=== PATIENT | male | born 1940 | race Two or more races ===

== ENCOUNTER → 2016-10-13 | Outpatient (CLI) | payer MEDICARE, BC ==
[2016-10-13 09:25] LABS: EKG EKG PERFORMED
[2016-10-13 10:45] LABS: Appearance,Urine Clear (Clear); Basophils % (A) 0 %; Bilirubin,Urine Negative (Negative); CH 30.5; CHCM 33.4; Eosinophils # (A) 0.1 k/uL (0-0.7); Eosinophils % (A) 1 %; Glucose,Urine (UA) Negative (Negative); HCT 41.8 % (39.0-53.0); HDW 2.66; HGB 14.1 gm/dL (13.0-17.5); Ketones,Urine Negative (Negative); Leukocyte Esterase,Urine Trace (Negative); Luc # (Auto) 0.19; Luc % (Auto) 3; Lymphocytes # (A) 2.2 k/uL (1.0-4.8); Lymphocytes % (A) 33 %; MCHC 33.8 g/dL (31.0-37.0); MCV 91.6 fL (80.0-100.0); Mean Platelet Volume 6.2; Monocytes # (A) 0.4 k/uL (0-1.0); Monocytes % (A) 6 %; Mucus,Urine Rare /hpf; Neutrophils # (A) 3.7 k/uL (1.3-7.7); Neutrophils % (A) 56 %; Nitrite,Urine Negative (Negative); PH, Urine 6.5 (5.0-8.0); Particle Count 2442; Protein,Urine Trace (Negative); RBC 4.57 m/uL (4.30-5.90); RBC,Urine 57 /hpf (0-5); RDW 13.1 % (11.5-15.5); Specific Gravity,Urine 1.013 (1.001-1.035); UA Billing (MACRO vs. MICRO) MICRO; Urobilinogen,Urine <2.0 mg/dL (<2.0); WBC 6.5 k/uL (3.8-10.6); WBC (Perox) 6.77; WBC,Urine 3 /hpf (0-5)
[2016-10-13 10:47] LABS: INR 1.1 (<1.1); Partial Thromboplastin Time 23.7 sec (22.0-30.0); Prothrombin Time 10.6 sec (9.0-12.0)
[2016-10-13 11:04] LABS: ALT 26 U/L (21-72); AST 22 U/L (17-59); Alkaline Phosphatase 78 U/L (38-126); Anion Gap 9 mmol/L; Blood Urea Nitrogen 14 mg/dL (9-20); Calcium 9.6 mg/dL (8.4-10.2); Carbon Dioxide 26 mmol/L (22-30); Chloride 104 mmol/L (98-107); Glucose 100 mg/dL (74-99); Non-African American GFR(MDRD) >60 (>60 ml/min/1.73 sqM); Potassium 4.7 mmol/L (3.5-5.1); Sodium 139 mmol/L (137-145); Total Bilirubin 0.6 mg/dL (0.2-1.3); Total Protein 6.9 g/dL (6.3-8.2)
== END | disposition home or self-care (01) ==
LOC: LABWHC1 09:13
PROVIDERS: ATTEND Orthopaedic Surgery Sports Medicine
DX: Z01.810 Encounter for preprocedural cardiovascular examination (principal); Z01.812 Encounter for preprocedural laboratory examination
CPT/HCPCS: 36415; 80053; 81001; 85025; 85610; 85730; 93005

== ENCOUNTER → 2016-10-26 | Outpatient (CLI) | payer MEDICARE, BC | END | disposition home or self-care (01) | LOC: LABPAT 12:02 | PROVIDERS: ATTEND Orthopaedic Surgery Sports Medicine | DX: Z01.812 Encounter for preprocedural laboratory examination (principal) | CPT/HCPCS: 87070 ==

== ENCOUNTER 2016-11-03 08:59 | Inpatient (IN) | payer MEDICARE, BC ==
[2016-10-25 08:54] VITALS: BMI 28.7
[~2016-11-03 08:59] MED LIST: ACETAMINOPHEN TAB 500 MG TAB PO ONE; HYDROmorphone 1 MG/ML 1 ML SYRINGE IVP PRN; LACTATED RINGERS 1,000 ML IV SCH; LIDOCAINE 1% 20 ML VIAL (10MG/ML) FOR IV START INTRADERMA PRN; MELOXICAM 7.5 MG TAB PO ONE; MIDAZOLAM 2 MG/2 ML VIAL IV PRN; ONDANSETRON 4 MG/2 ML VIAL IVP ONE; TRANEXAMIC ACID 1,000 MG in SODIUM CHLORIDE 0.9% 100 ML IVPB ONE; ceFAZolin 2 GM in SODIUM CHLORIDE 0.9% 100 ML IVPB ONE
[2016-11-03] MEDS ORDERED: HYDROmorphone 1 MG/ML 1 ML SYRINGE IVP PRN ×3 (14:05)
[2016-11-03] MEDS ORDERED: TEMAZEPAM 15 MG CAP PO PRN (14:05)
[2016-11-03] MEDS ORDERED: NALOXONE 0.4 MG/ML 1 ML VIAL IV PRN ×2 (14:05→18:14)
[2016-11-03] MEDS ORDERED: NA PHOS,M-B/NA PHOS,DI-BA 133 ML ENEMA RECTAL PRN (14:05)
[2016-11-03] MEDS ORDERED: HYDROcodone/APAP 7.5-325MG 1 EACH TAB PO PRN ×2 (14:05)
[2016-11-03] MEDS ORDERED: DIAZEPAM 5 MG TAB PO PRN (14:05)
[2016-11-03] MEDS ORDERED: ACETAMINOPHEN TAB 325 MG TAB PO PRN (14:05)
[2016-11-03] MEDS ORDERED: MAGNESIUM HYDROXIDE 2,400 MG/10 ML CUP PO PRN (14:05)
[2016-11-03] MEDS ORDERED: traMADol 50 MG TAB PO PRN (14:05)
[2016-11-03] MEDS ORDERED: hydrOXYzine PAMOATE 25 MG CAP PO PRN (14:05)
[2016-11-03] MEDS ORDERED: BISACODYL 10 MG SUPP RECTAL PRN (14:05)
[2016-11-03] MEDS ORDERED: ONDANSETRON 4 MG/2 ML VIAL IVP PRN (14:05)
[2016-11-03] MEDS: LACTATED RINGERS 1,000 ML IV SCH (14:10)
[2016-11-03] MEDS ORDERED: VANCOMYCIN 1,000 MG in SODIUM CHLORIDE 0.9% 250 ML IVPB STA (15:44)
[2016-11-03] MEDS ORDERED: SODIUM CHLORIDE 0.9% 100 ML BAG ONE (15:47)
[2016-11-03] MEDS ORDERED: TRANEXAMIC ACID 1,000 MG/10 ML VIAL ONE (15:47)
[2016-11-03] MEDS ORDERED: PROPOFOL 10 MG/ML 20 ML VIAL IV ONE (15:47)
[2016-11-03] MEDS ORDERED: MORPHINE SULFATE (PF) 0.3 MG/0.3 ML SYR ONE (15:47)
[2016-11-03] MEDS ORDERED: fentaNYL (PF) 50 MCG/ML 2 ML AMP ONE (15:47)
[2016-11-03] MEDS ORDERED: MIDAZOLAM 2 MG/2 ML VIAL ONE (15:47)
[2016-11-03] MEDS ORDERED: GLYCOPYRROLATE 0.2 MG/ML 2 ML VIAL ONE (15:47)
[2016-11-03] MEDS: ROPIVACAINE 246.25 MG, EPINEPHrine 0.5 MG, KETOROLAC 30 MG, cloNIDine HCL/PF 80 MCG, WA... MISCELLANE ONE ×10 (16:15→17:14)
[2016-11-03] MEDS ORDERED: LACTATED RINGERS 1,000 ML IV ONE ×2 (16:38→18:46)
[2016-11-03] MEDS ORDERED: CLINDAMYCIN 1,800 MG in SODIUM CHLORIDE 0.9% IRRIGATIO 3,000 ML IRRIGATION ONE (16:39)
[2016-11-03] MEDS ORDERED: MORPHINE SULFATE 4 MG/ML SYRINGE IVP PRN (18:14)
[2016-11-03] MEDS ORDERED: NALBUPHINE 10 MG/ML AMPUL IV PRN (18:14)
[2016-11-03] MEDS ORDERED: diphenhydrAMINE 50 MG/ML 1 ML VIAL IVP PRN (18:14)
--- NOTE | 2016-11-03 18:29 | XR ---
EXAMINATION TYPE: XR knee limited LT DATE OF EXAM: 11/03/2016 6:16 PM CLINICAL HISTORY: Postoperative evaluation Two views of the left knee are submitted. Identified are changes of total knee arthroplasty with fem oral and tibial components appearing well seated. Postsurgical soft tissue changes are noted. Align ment is anatomic.
[2016-11-03] MEDS ORDERED: MORPHINE SULFATE 2 MG/ML SYRINGE IVP PRN (20:03)
[2016-11-03] MEDS ORDERED: SENNOSIDES-DOCUSATE SODIUM 1 EACH TAB PO SCH (21:00)
[2016-11-03] MEDS: ASPIRIN 325 MG TAB PO SCH (21:36)
[2016-11-03] MEDS: TAMSULOSIN 0.4 MG CAP.ER.24H PO SCH (22:25)
[2016-11-04] MEDS: ceFAZolin 2 GM in SODIUM CHLORIDE 0.9% 100 ML IVPB SCH ×2 (00:15→00:28)
[2016-11-04] MEDS: LACTATED RINGERS 1,000 ML IV SCH ×3 (01:20→15:11)
[2016-11-04 01:46] VITALS: RESP 16
[2016-11-04] MEDS ORDERED: PANTOPRAZOLE 40 MG TABLET PO SCH (07:30)
[2016-11-04] MEDS: ASPIRIN 325 MG TAB PO SCH (07:48)
--- NOTE | 2016-11-04 08:19 | OP ---
DATE OF SERVICE: 11/03/2016 SURGEON: ANDI WATKINS MD GRAIN ELEVATOR WORKER: KELLY ZACARIAS PA-C. PREOPERATIVE DIAGNOSIS: Left knee osteoarthrosis. POSTOPERATIVE DIAGNOSIS: Left knee osteoarthrosis. OPERATION: Left total knee arthroplasty. ANESTHESIA: Spinal with sedation. ESTIMATED BLOOD LOSS: 100 mL. Tourniquet time was 58 minutes at 250 mmHg. SPECIMENS REMOVED: COMPLICATIONS: None apparent. DRAINS: None. DISPOSITION: Postanesthesia care unit. INDICATIONS: Mr. Sharma is a very pleasant 75-year-old male with a long-standing history of left knee pain. History and physical examination are consistent with advanced left knee osteoarthrosis. He has been through significant nonoperative management up to this point. Further treatment options were discussed and he has decided to go forward with a left total knee arthroplasty. The risks of the procedure were discussed with him in detail. These risks include, but are not limited to risk infection, nerve damage, bleeding, pain, and a risk of deep vein thrombosis, which could lead to fatal pulmonary embolism. There is also a risk of loosening of the implant, which could require revision operation. The patient understands these risks are all of his questions were answered to his satisfaction. Appropriate informed consent was obtained. DESCRIPTION OF THE PROCEDURE: The patient was identified in the preoperative holding area. The surgical site was marked by both the patient and myself. He was given 1 gram of vancomycin IV for prophylactic purposes. He was then transferred to the operative suite where he was placed supine on the operating room table. A spinal anesthetic was administered dosed per the anesthesia department without apparent complication. Examination under anesthesia was then performed. Patient was 2 to 3 degrees shy of full extension. He had 95 degrees of flexion. The medial collateral ligament, lateral collateral ligament and posterior cruciate ligaments were stable. Tourniquet was then placed high on the left upper thigh, well-padded in preparation for surgery. The patient's left lower extremity was then prepped and draped usual sterile fashion. Standard surgical pause was then undertaken to ensure that we were operating on the correct site and that appropriate preoperative antibiotics had been given. All staff in the room in agreement and we proceeded. The outlines of the patella were then marked with a surgical pen. A planned 12 cm vertical incision centered over the patella was marked with a surgical pen. The leg was then exsanguinated with an Esmarch dressing. The knee was then flexed and the tourniquet was inflated to 250 mmHg. Total tourniquet time for the procedure was 58 minutes. Incision was then made with a 10 blade scalpel. Dissection was carried down sharply to the overlying fascia. Great care was taken to minimize the skin flaps. The knee was then exposed using standard medial parapatellar approach. A small cuff of quadriceps tendon was left for suturing. He was in a bit of varus preoperatively. A standard medial release was then made. Superficial medial collateral ligament was dissected off the bone around to posterior aspect of the proximal tibia. The medial meniscus was then excised as well. The lateral meniscus was also released anteriorly. The leg was then externally rotated. The patella was everted. The knee was then flexed. Retractors were then placed to protect the collateral ligaments. I then proceeded to remove the infrapatellar fat pad. This was excised sharply tangentially with the fibers of the patellar tendon. I then proceeded to remove the peripheral osteophytes. This was done with a rongeur. I then proceeded with the distal femoral resection. He did have a small flexion contracture. I decided to go forward with a 9 mm resection. The femoral canal was then entered in midline of the femur approximately 10 mm anterior to the origin of the posterior cruciate ligament. The zuleyka was then advanced down the center of the femur and placed intramedullary. Based on preoperative radiographs, the angle between the anatomic and mechanical axis of the femur was approximately 4 to 5 degrees. The valgus angle of distal femoral cutting guide was then set at 4 degrees for the left knee. The distal femoral cutting guide was then advanced over the intramedullary zuleyka. This was seated firmly against the femur. I then, as mentioned, planned to take 9 mm off the distal femur. Cutting block was then secured onto the femur with pins. Jig was then removed. The distal femoral cut was made through the slot of the block. The pins were then removed. The distal femoral cutting block was removed. The accuracy of the distal femoral cuts was checked with 2 flat bars. I then proceeded with femoral sizing. The posterior referencing sizing guide was held firmly against the resected distal surface of the femur. Posterior condyles were resting on the posterior plane of the guide. The sizing stylus was then placed onto the anterior femur. The size was measured as a size 8. I then assessed for femoral rotation. Plan was for 3 degrees of external rotation. 3 degrees of external rotation was placed onto the jig. These holes were then marked. I then confirmed the rotation by 3 separate methods. This was done using epicondylar axis as well as Whitesides line and posterior referencing. It was then deemed that the external rotation was proper. I then went forward placing the femoral cutting block. This was placed over the previously placed pinholes. The brenton wing was then placed onto the anterior slots to ensure that we would not notch the anterior femur with the anterior femoral cut. I then proceeded with the anterior femoral cut. This was flush with the anterior cortex of femur. Posterior cuts were then made followed by the anterior chamfer cut and then the posterior chamfer cut. The cutting block was then removed. Throughout the resection, the collateral ligaments were protected with retractors. I then placed a trial size 8 femur. It fit very nice medial to lateral and fit flush with the distal end of the femur. The drill holes were then made. I then proceeded with the tibial cut. I planned for cruciate-retaining knee. The guide was then placed and set for varus valgus and for slope. The height was set for an approximately 2 mm resection from the medial tibial plateau, which was the lower side. I was happy with the alignment and the amount of resection. The cutting block was then pinned to the proximal tibia. The alignment zuleyka was removed and the proximal tibia was resected with reciprocating saw. Again, this was done with retractors, protecting the collateral ligaments as well as posterior cruciate ligament. I then proceeded to evaluate the flexion and extension gaps. A 10 mm block was then placed. The flexion-extension gaps were equal. I then proceeded with resection of posterior osteophytes. He had fairly extensive posterior osteophytes. He also had multiple loose bodies in the posterior recess of the knee. These were removed with a hemostat. It was also done utilizing a curved osteotome. This resected the posterior osteophytes and posterior capsule stripping was also done off the posterior aspect of the femur at this time. The osteophytes were removed. I then proceeded with resection of the patella. Thickness of the patella was measured using the caliper. Thickness was 22 mm. The thickness of the anticipated patellar dome was then taken into account. Resection was then performed and confirmed to be equal in 4 quadrants using the caliper. Approximately 14 mm of bone remained after the resection. A 32 x 8.5 mm standard patellar trial was then placed. The holes were then drilled and trial was then placed. I then proceeded with sizing tibial plate. A size F tibial plate fit very nicely. I then placed a trial femur, tibial tray and the patellar button. A 10 mm trial tibial insert was also placed. The components fit very nicely. He had full flexion and extension. The extension and flexion gaps were equal and stable to both varus and valgus stress. The patella tracked appropriately. Tibial tray rotation was marked with a Bovie. This was externally rotated properly. I then proceeded with tibial preparation. I first drilled femoral holes and removed femoral component. The tibial tray was then set for proper external rotation as well as mediolateral placement onto the tibia. It was then pinned into place. I then proceeded with punching the keel. I then decided to proceed with cementing of all of our components. The knee was thoroughly irrigated with sterile saline solution via pulse lavage. The lateral genicular artery was identified and cauterized. All blood was removed from the bone of the tibia, femur and patella with pulse lavage. I then proceeded with cementing. 2 packs of antibiotic bone cement were prepared on the back table by the surgical coder. I then proceeded with cementing of the tibia first. The cement was impacted in the keel as well as deeply seated into bone. A second coat of cement was then placed. The tibia was then impacted into place. Excess cement was removed with Mima's and jokers. I then proceeded with cementing of the femoral component. The femoral component was also cemented using standard technique. Excess cement was removed. A 10 mm trial insert was then placed into the knee. It was brought into full extension with a constant axial load placed until the cement had hardened. When the patellar component was then cemented, this was held firmly with a compressive device until the cement had dried. When the cement had dried, the knee was taken out of extension. All excess cement was removed from around the prosthesis. I then trialed the knee with a 10 mm insert. Flexion-extension section gaps were appropriate. I then trialed with an 11 mm insert. Flexion-extension gaps felt better. The knee was stable. It came into full extension. I decided to go forward with an 11 mm cross-linked cruciate-retaining tibial insert. Polyethylene was then placed onto the tibial tray and locked into place. The knee was then reduced. The knee was again further irrigated with sterile saline solution with antibiotic added. The tourniquet was then deflated. The total tourniquet time for the procedure was 58 minutes at 250 mmHg. Final components were Geovanna persona size 8, cruciate-retaining femoral component, a size F tibial tray, an 11 millimeters cruciate retaining polyethylene insert and a 32 8.5 mm patella. I then proceeded with closure. Again, the knee was thoroughly irrigated. The quadriceps tendon and the medial retinaculum were reapproximated with #2 Ethibond suture. The extensor mechanism was then closed with running #2 Quill suture. Subcutaneous tissues then closed with 2-0 Vicryl interrupted suture. Skin was closed with a running 3-0 Quill suture. Dermabond was applied to the incision. Sterile compressive dressings applied. All sponge and needle counts were deemed correct prior to closure. The patient tolerated the procedure without apparent complication. He was transferred to recovery room in stable condition.
[2016-11-04 08:27] LABS: Basophils % (A) 0 %; CHCM 32.7; Eosinophils # (A) 0.1 k/uL (0-0.7); Eosinophils % (A) 1 %; HCT 38.7 % (39.0-53.0); HGB 12.5 gm/dL (13.0-17.5); Luc # (Auto) 0.21; Luc % (Auto) 2; Lymphocytes % (A) 21 %; MCH 30.6 pg (25.0-35.0); MCHC 32.2 g/dL (31.0-37.0); MCV 95.1 fL (80.0-100.0); Mean Platelet Volume 6.2; Monocytes # (A) 0.6 k/uL (0-1.0); Monocytes % (A) 6 %; Neutrophils # (A) 6.6 k/uL (1.3-7.7); Neutrophils % (A) 70 %; RBC 4.07 m/uL (4.30-5.90); RDW 13.4 % (11.5-15.5); WBC 9.4 k/uL (3.8-10.6); WBC (Perox) 9.93
[2016-11-04] MEDS ORDERED: NON-FORMULARY DRUG (Multivitamin [Men's Multi-Vitamin] 1 TAB) PO SCH (09:00)
[2016-11-04] MEDS ORDERED: LISINOPRIL 20 MG TAB PO SCH (09:00)
[2016-11-04] MEDS ORDERED: METOPROLOL TARTRATE 25 MG TAB PO SCH (09:00)
[2016-11-04] MEDS ORDERED: amLODIPine 10 MG TAB PO SCH (09:00)
--- NOTE | 2016-11-04 09:24 | P.DS ---
Providers Date of admission: 11/03/16 13:05 Expected date of discharge: 11/04/16 Attending physician: Cali Moss Consults: 11/03/16 14:05 Consult Physician Routine Consulting Provider: Selena Corbett Consult Reason/Comments: post op medical management Do you want consulting provider notified?: Yes Primary care physician: Stated None - Discharge Diagnosis(es) (1) Osteoarthritis of left knee Current Visit: Yes Status: Acute Priority: Medium Hospital Course: Patient was admitted to the OR on 11/03/2016 to undergo left total knee arthroplasty. He had failed conservative measures and outpatient desired proceed with surgical intervention. The possible risks, complications , benefits were reviewed with patient and he elected to proceed. Patient underwent the above procedure which he tolerated well without complication. His postoperative hospital course has remained without complication. On day of discharge he desires discharge to home. On day of discharge he is afebrile, blood vital signs stable, labs within acceptable ranges, wound is benign, neurovascular status intact, calf is soft nontender, abdomen is soft nontender, denying new complaints, tolerating by mouth meds and diet, voiding without difficulty and passing flatus. Review of systems is negative for fever, chills , chest pain, shortness breath, nausea, vomiting, dizziness, headaches, numbness , tingling, calf pain, abdominal pain, slurred speech or other. Procedures: Left knee total arthroplasty Patient Condition at Discharge: Good Plan - Discharge Summary New Discharge Prescriptions: Aspirin 325 mg PO BID #60 tab Docusate [Colace] 100 mg PO BID #60 capsule HYDROcodone/APAP 7.5-325MG [[place] 7.5-325] 1 - 2 each PO Q6HR PRN #90 tab PRN Reason: Pain Discharge Medication List Aspirin [Adult Low Dose Aspirin EC] 81 mg PO DAILY 10/25/16 [History] Lisinopril [Zestril] 20 mg PO DAILY 10/25/16 [History] Metoprolol Tartrate [Lopressor] 25 mg PO BID 10/25/16 [History] Multivitamin [Men's Multi-Vitamin] 1 tab PO DAILY 10/25/16 [History] Pantoprazole [Protonix] 40 mg PO DAILY 10/25/16 [History] Tamsulosin [Flomax] 0.4 mg PO HS 10/25/16 [History] amLODIPine [Norvasc] 10 mg PO DAILY 10/25/16 [History] Aspirin 325 mg PO BID #60 tab 11/04/16 [Rx] Docusate [Colace] 100 mg PO BID #60 capsule 11/04/16 [Rx] HYDROcodone/APAP 7.5-325MG [[place] 7.5-325] 1 - 2 each PO Q6HR PRN #90 tab [Rx] Follow up Appointment(s)/Referral(s): [facility], [NON-STAFF] - 1 Week Cali Moss MD [STAFF PHYSICIAN] - 2 Weeks Activity/Diet/Wound Care/Special Instructions: Take meds as directed Keep wound clean and dry May shower in [address] Moss in office [phone] weightbearing as tolerated Discharge Disposition: HOME WITH HOME HEALTH SERVICES
[2016-11-04] MEDS ORDERED: VANCOMYCIN 1,250 MG in SODIUM CHLORIDE 0.9% 250 ML IVPB ONE (09:30)
--- NOTE | 2016-11-04 09:56 | P.PN ---
Progress Note - Text Postoperative day 1 status post left total knee arthroplasty, under spinal anesthesia, and intrathecal morphine given for postoperative analgesia, patient doing well, there is no anesthesia related complications, further management as per her primary team
[2016-11-04] MEDS ORDERED: MULTIVITAMINS, THERA 1 EACH TAB PO SCH (12:00)
--- NOTE | 2016-11-04 14:01 | CONS ---
DATE OF CONSULTATION: REASON FOR CONSULTATION: Recommendations regarding antihypertensive medication. Patient is a pleasant 75-year-old gentleman is admitted for left knee arthroplasty. Patient is clinically doing well, denied any fever, chills. Patient denied any nausea, vomiting, abdominal pain. REVIEW OF SYSTEMS: CONSTITUTIONAL: No fever, no malaise, no fatigue. HEENT: No recent visual problems or hearing problems. Denied any sore throat. CARDIOVASCULAR: No chest pain, orthopnea, PND, no palpitations, no syncope. PULMONARY: No shortness of breath, no cough, no hemoptysis. GASTROINTESTINAL: No diarrhea, no nausea, no vomiting, no abdominal pain. Normoactive bowel sounds. NEUROLOGICAL: No headaches, no weakness, no numbness. HEMATOLOGICAL: Denies any bleeding or petechiae. GENITOURINARY: Denies any burning micturition, frequency, or urgency. MUSCULOSKELETAL/RHEUMATOLOGICAL: Denies any joint pain, swelling, or any muscle pain. ENDOCRINE: Denies any polyuria or polydipsia. The rest of the 14 point review of systems is negative. Home medications include amlodipine, tamsulosin, Pantoprazole, metoprolol, lisinopril, hydrocodone, acetaminophen, docusate. Patient was started off on all his home medications and his blood pressure and vitals are doing well. PAST MEDICAL HISTORY: Significant for gastroesophageal reflux disease, hypertension, prostate cancer and osteoarthritis, orthopedic surgery in the past. SOCIAL HISTORY: Former smoker. Quit smoking in 1986. Denied any alcohol abuse or any drug abuse. FAMILY HISTORY: Significant for cancer. PHYSICAL EXAMINATION: VITAL SIGNS: Temperature 97.1, pulse of 98, respiratory rate of 16, blood pressure is 112/60, saturating at 98% on room air. PHYSICAL EXAMINATION: GENERAL: The patient is alert and oriented x3, not in any acute distress. Well developed, well nourished. HEENT: Pupils are round and equally reacting to light. EOMI. No scleral icterus. No conjunctival pallor. Normocephalic, atraumatic. No pharyngeal erythema. No thyromegaly. CARDIOVASCULAR: S1 and S2 present. No murmurs, rubs, or gallops. PULMONARY: Chest is clear to auscultation, no wheezing or crackles. ABDOMEN: Soft, nontender, nondistended, normoactive bowel sounds. No palpable organomegaly. MUSCULOSKELETAL: Refer to Orthopedic Surgery. EXTREMITIES: No cyanosis, clubbing, or pedal edema. NEUROLOGICAL: Gross neurological examination did not reveal any focal deficits. SKIN: No rashes. LABORATORY DATA: CBC was reviewed. ASSESSMENT AND PLAN: 1. Postoperative day one left knee arthroplasty. Patient is clinically doing well. No signs or symptoms of infection. Pain management and deep venous thrombosis prophylaxis as per Primary Service and patient can be discharged from medical perspective. 2. Hypertension, for which he can continue his home medications. Patient's blood pressure is doing well after resuming his medications. 3. Gastroesophageal reflux disease. 4. Benign prostatic hypertrophy. Patient can continue home medications, as well. Patient is okay for discharge from my perspective. No further recommendations. Patient will need to follow with his PCP in about a week. [facility] is following the patient. Thank you for letting me participate in this patient's care.
[2016-11-04] MEDS: TAMSULOSIN 0.4 MG CAP.ER.24H PO SCH (14:21)
[2016-11-04 14:25] VITALS: BP 127/81; PULSE 71; TEMP 98.4
== END 2016-11-04 15:29 | disposition home health service (06) | DRG 470 ==
LOC: 2ORMAIN 13:05 → 3SUR 18:04
PROVIDERS: ADMIT Orthopaedic Surgery Sports Medicine; ATTEND Orthopaedic Surgery Sports Medicine
PROC: 0SRD0J9 Replacement of Left Knee Joint with Synthetic Substitute, Cemented, Open Approach (ICD-10-PCS; principal; 2016-11-03 15:40)
DX: M17.12 Unilateral primary osteoarthritis, left knee (principal); I10 Essential (primary) hypertension; K21.9 Gastro-esophageal reflux disease without esophagitis; N40.0 Benign prostatic hyperplasia without lower urinary tract symptoms; Z85.46 Personal history of malignant neoplasm of prostate; Z87.891 Personal history of nicotine dependence; Z79.899 Other long term (current) drug therapy; Z88.0 Allergy status to penicillin
CPT/HCPCS: 85025; 88305; 88311

== ENCOUNTER 2019-07-29 09:01 | Day surgery (SDC) | payer MEDICARE, BC ==
[2019-07-24 14:27] VITALS: BMI 28.7
[~2019-07-29 09:01] MED LIST changes: -ACETAMINOPHEN TAB 500 MG TAB PO ONE; +DEXAMETHASONE SOD PHOSPHATE 10 MG/ML 1 ML VIAL IV ONE; +HEPARIN SODIUM,PORCINE 5,000 UNIT/ML 1 ML VIAL SQ ONE; +HYDROmorphone 0.5 MG/0.5 ML SYRINGE IVP PRN; -HYDROmorphone 1 MG/ML 1 ML SYRINGE IVP PRN; -LIDOCAINE 1% 20 ML VIAL (10MG/ML) FOR IV START INTRADERMA PRN; -MELOXICAM 7.5 MG TAB PO ONE; +Pre Op ABX Message 1 EACH MISC MISCELLANE ONE; -TRANEXAMIC ACID 1,000 MG in SODIUM CHLORIDE 0.9% 100 ML IVPB ONE; -ceFAZolin 2 GM in SODIUM CHLORIDE 0.9% 100 ML IVPB ONE
[2019-07-29 09:37] VITALS: TEMP 99.1
--- NOTE | 2019-07-29 10:55 | P.GSHP ---
History of Present Illness H&P Date: 07/29/19 Chief Complaint: History of urethral cancer This 78-year-old male who's previously diagnosis urethral cancer. Patient rents today for Port-A-Cath placement. Past Medical History Past Medical History: Cancer, GERD/Reflux, Hypertension, Osteoarthritis (OA), Prostate Disorder Additional Past Medical History / Comment(s): HX OF PROSTATE CANCER WITH RADIATION [place] (2002), SKIN CANCER., PTS STATES NEW DIAGNOSIS URETHRA CANCER., RECENT COLONOSCOPY WITH POLYPS. History of Any Multi-Drug Resistant Organisms: None Reported Past Surgical History: Joint Replacement Additional Past Surgical History / Comment(s): TOTAL LEFT KNEE , URETHRA BX, COLONOSCOPY WITH POLYPS. Past Anesthesia/Blood Transfusion Reactions: No Reported Reaction Additional Past Anesthesia/Blood Transfusion Reaction / Comment(s): . Past Psychological History: No Psychological Hx Reported Smoking Status: Former smoker Past Alcohol Use History: Rare Additional Past Alcohol Use History / Comment(s): QUIT SMOKING 1986 Past Drug Use History: None Reported - Past Family History Father Family Medical History: Cancer Additional Family Medical History / Comment(s): COLON CANCER Brother(s) Family Medical History: Cancer Additional Family Medical History / Comment(s): PROSTATE CANCER Medications and Allergies Home Medications Medication Instructions Recorded Confirmed Type Lisinopril [Zestril] 20 mg PO DAILY 10/25/16 07/29/19 History Metoprolol Tartrate [Lopressor] 25 mg PO BID 10/25/16 07/29/19 History Multivitamin [Men's Multi-Vitamin] 1 tab PO DAILY 10/25/16 07/24/19 History Pantoprazole [Protonix] 40 mg PO DAILY 10/25/16 07/29/19 History Tamsulosin [Flomax] 0.4 mg PO HS 10/25/16 07/29/19 History amLODIPine [Norvasc] 10 mg PO HS 10/25/16 07/29/19 History Aspirin [Adult Low Dose Aspirin EC] 81 mg PO DAILY 07/24/19 07/24/19 History Sulindac 200 mg PO DAILY PRN 07/24/19 07/29/19 History Allergies Allergy/AdvReac Type Severity Reaction Status Date / Time Penicillins Allergy throat Verified 07/29/19 09:21 swells Surgical - Exam Vital Signs Temp Pulse Resp BP Pulse Ox 99.1 F 61 16 143/65 94 L 07/29/19 09:36 07/29/19 09:36 07/29/19 09:36 07/29/19 09:36 07/29/19 09:36 - General well developed, well nourished, no distress - Eyes PERRL - ENT normal pinna - Neck no masses - Respiratory normal expansion - Cardiovascular Rhythm: regular - Abdomen Abdomen: soft, non tender Assessment and Plan Assessment: History of urethral cancer. We'll perform Port-A-Cath placement
[2019-07-29] MEDS ORDERED: fentaNYL (PF) 50 MCG/ML 2 ML AMP ONE (11:27)
[2019-07-29] MEDS ORDERED: PROPOFOL 10 MG/ML 20 ML VIAL IV ONE (11:27)
[2019-07-29] MEDS ORDERED: MIDAZOLAM 2 MG/2 ML VIAL ONE (11:27)
[2019-07-29] MEDS ORDERED: diphenhydrAMINE 50 MG/ML 1 ML VIAL ONE (11:27)
[2019-07-29] MEDS ORDERED: SODIUM CHLORIDE 0.9% 50 ML with ceFAZolin 2,000 MG IV ONE ×2 (11:45)
[2019-07-29] MEDS ORDERED: HEPARIN SODIUM,PORCINE 100 UNIT/ML 5 ML VIAL IV ONE (11:59)
[2019-07-29] MEDS ORDERED: BUPIVACAIN-EPI 0.25%-1:200,000 30 ML VIAL SQ ONE ×2 (11:59)
[2019-07-29] MEDS ORDERED: SODIUM CHLORIDE 0.9% 500 ML 500 ML IV ONE (12:14)
--- NOTE | 2019-07-29 12:21 | P.OP ---
Date of Procedure: 07/29/19 Preoperative Diagnosis: Urethral cancer Postoperative Diagnosis: Same Procedure(s) Performed: Insertion of left subclavian Port-A-Cath Anesthesia: MAC Surgeon: Jose Murphy Estimated Blood Loss (ml): 5 Pathology: none sent Condition: stable Disposition: PACU Description of Procedure: PROCEDURE: The patient was placed on the operating table in the supine position. She received MAC anesthetic. The [left] chest was prepped and draped in the usual sterile fashion. The skin underneath the right clavicle was anesthetized with 1% Xylocaine and using Seldinger technique, the right subclavian vein was cannulized. The wire was placed through the needle and positioned under fluoroscopy. Next, the needle was removed and the port site was anesthetized with 1% Xylocaine. Skin was incised with #15 blade and port pocket was made using blunt and sharp dissection. Following this the catheter was attached to the sport and the port was flushed. The port was positioned into the pocket site and was secured with 3-0 Vicryl suture. The catheter was then brought out through the wire site and then the dilator sheath was placed over the wire and the dilator and the wire were removed. The catheter was placed through the sheath and the sheath was removed. The port was flushed with hep-lock solution. Skin was closed with interrupted 3-0 Vicryl sutures. Steri-Strips were applied. The patient tolerated the procedure well. The patient was sent to recovery room for chest x-ray after the procedure.
[2019-07-29 12:24] VITALS: PULSE 57
--- NOTE | 2019-07-29 12:27 | FL ---
EXAMINATION TYPE: FL guided central line placemt DATE OF EXAM: 07/29/2019 CLINICAL HISTORY: Port-A-Cath insertion. TECHNIQUE: Fluoroscopy. COMPARISON: None. FINDINGS: Fluoroscopic guidance was provided during Port-A-Cath insertion procedure performed by Dr. Murphy. A total of 8 seconds of fluoroscopic time was utilized during the procedure and 2 spot im ages was acquired. Images acquired show portion of right subclavian guidewire and catheter terminatin g near region of SVC. IMPRESSION: As Above.
[2019-07-29 12:47] VITALS: BP 138/56; RESP 20
--- NOTE | 2019-07-29 12:53 | XR ---
EXAMINATION TYPE: XR chest 1V portable DATE OF EXAM: 07/29/2019 COMPARISON: NONE HISTORY: Right-sided Port-A-Cath insertion. TECHNIQUE: Single frontal view of the chest is obtained. FINDINGS: Right-sided subclavian Mediport catheter seen terminating in SVC. Low lung volumes. There is chronic parenchymal changes in the bases greater on the left without suspicious focal air space op acity, pleural effusion, or pneumothorax seen. The cardiac silhouette size is enlarged. High riding humeral heads bilaterally suggest chronic rotator cuff tears IMPRESSION: Right subclavian Mediport catheter terminating in SVC. No pneumothorax noted.
== END 2019-07-29 13:19 | disposition home or self-care (01) ==
LOC: OR 09:01
PROVIDERS: ATTEND Surgery
DX: C61 Malignant neoplasm of prostate (principal); C79.19 Secondary malignant neoplasm of other urinary organs; I10 Essential (primary) hypertension; M19.90 Unspecified osteoarthritis, unspecified site; Z91.030 Bee allergy status; Z88.0 Allergy status to penicillin; Z82.49 Family history of ischemic heart disease and other diseases of the circulatory system; K21.9 Gastro-esophageal reflux disease without esophagitis; Z92.3 Personal history of irradiation; Z85.828 Personal history of other malignant neoplasm of skin; Z96.652 Presence of left artificial knee joint; Z98.890 Other specified postprocedural states; Z87.891 Personal history of nicotine dependence; Z80.0 Family history of malignant neoplasm of digestive organs; Z80.42 Family history of malignant neoplasm of prostate; Z79.82 Long term (current) use of aspirin; Z79.899 Other long term (current) drug therapy
CPT/HCPCS: 77001; 71045; 36561; C1788; J2250; J1200; J1644; J1642; J1100; J2405; J0690; J3010; J2704